=== PATIENT | female | born 1955 | race Caucasian/White ===

== ENCOUNTER → 2016-06-15 | Outpatient (CLI) | payer OTHER ==
--- NOTE | ~2016-06-15 | CT55 ---
[facility] A Service of [facility] RADIOLOGY TEXT RESULTS PATIENT: ROSA ROSE LOCATION: [facility] : 57 UNIT #: [id number] AGE: [address]: Destiney Cruz MD SEX: F ORDER DR: [id number] [facility] [address] [place], [place] [address] [id number] O MR#: [id number] Acc #: [id number] NAME: ROSA ROSE : 1955 SEX: F STUDY DATE/TIME: 06/15/2016 14:09 UNIT: [facility] ROOM: STUDY DESCRIPTION: CT Chest W Con Attending Physician: Destiney Cruz M.D., Ph.D. Referring Physician: Destiney Cruz M.D., Ph.D. Ordering Physician: Destiney Cruz M.D., Ph.D. Primary Care Physician: Primary Care Physician No MEDICAL IMAGING REPORT This report is preliminary unless electronic signature is present EXAM CT chest, 06/15/2016 HISTORY Colon cancer. Malignant neoplasm of the descending colon. Restaging. Observation for metastatic disease. TECHNIQUE CT of the chest utilizing 100 mL Isovue-370 IV contrast. Coronal and sagittal reconstructions were obtained. This CT exam was performed with one or more of the following radiation dose reduction techniques: automatic exposure control, adjustment of mA and/or kV according to patient size, and iterative reconstruction. COMPARISON Concurrent CT abdomen and pelvis dated 06/15/[address] chest, abdomen, and pelvis dated 02/06/2016. FINDINGS There are a few tiny micronodules in the lungs. These all measure less than 3 mm in size and are unchanged from prior studies. Some of these appear to be calcified and are likely benign granulomas. There is no focal consolidation. Central airways are patent. No pathologically enlarged mediastinal or hilar lymph nodes. Please refer to a separately dictated report for details on the abdomen and pelvis. There is no acute osseous abnormalities. IMPRESSION Tiny noncalcified pulmonary nodules are unchanged from July 2015. These are probably benign granulomas, however can be followed given the [facility] A Service of [facility] RADIOLOGY TEXT RESULTS PATIENT: ROSA ROSE LOCATION: [facility] : 57 UNIT #: [id number] AGE: [address]: Destiney Cruz MD SEX: F ORDER DR: patient's history. Dictated by... Riki Chambers M.D. THIS IS AN ELECTRONICALLY VERIFIED REPORT Riki Chambers M.D. at 06/16/2016 2:14 PM JUSTYNA/jyoti TD: 06/16/2016 00:02 JOB #: [id number] MEDICAL IMAGING REPORT COPY
--- NOTE | ~2016-06-15 | CT2 ---
[facility] A Service of [facility] RADIOLOGY TEXT RESULTS PATIENT: ROSA ROSE LOCATION: [facility] : 57 UNIT #: [id number] AGE: [address]: Destiney Cruz MD SEX: F ORDER DR: [id number] [facility] [address] [place], [place] [address] [id number] O MR#: [id number] Acc #: [id number] NAME: ROSA ROSE : 1955 SEX: F STUDY DATE/TIME: 06/15/2016 14:09 UNIT: [facility] ROOM: STUDY DESCRIPTION: CT Abd and Pelv W Cont Attending Physician: Destiney Cruz M.D., Ph.D. Referring Physician: Destiney Cruz M.D., Ph.D. Ordering Physician: Destiney Cruz M.D., Ph.D. Primary Care Physician: Primary Care Physician No MEDICAL IMAGING REPORT This report is preliminary unless electronic signature is present EXAM CT abdomen and pelvis, 06/15/2016. HISTORY Malignant neoplasm in the descending colon. Restaging. Observation for metastatic disease. TECHNIQUE CT of the abdomen and pelvis with p.o. and IV contrast (100 mL Isovue-370 IV contrast). Coronal and sagittal reconstructions were obtained. This CT exam was performed with one or more of the following radiation dose reduction techniques: Automatic exposure control, adjustment of mA and/or kV according to patient size, and iterative reconstruction. COMPARISON Concurrent CT chest 06/15/[address] chest, abdomen and pelvis dated 02/06/2016. FINDINGS ABDOMEN: Low attenuation throughout the hepatic parenchyma is most consistent with hepatic steatosis. The gallbladder is not distended. The pancreas, adrenal glands, and kidneys are within normal limits. 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 The bowel is not dilated. There is postsurgical change of the stomach. The gallbladder is not distended. The abdominal aorta is normal in caliber. PELVIS: No pelvic mass. The appendix is normal. PELVIS: No pelvic mass or free pelvic fluid. Bladder is unremarkable. No enlarged pelvic or inguinal lymph nodes. No acute osseous abnormalities. STS. [facility] A Service of [facility] RADIOLOGY TEXT RESULTS PATIENT: ROSA ROSE LOCATION: [facility] : 57 UNIT #: [id number] AGE: [address]: Destiney Cruz MD SEX: F ORDER DR: IMPRESSION 1. No evidence of metastatic disease in the abdomen or pelvis. Dictated by... Riki Chambers M.D. THIS IS AN ELECTRONICALLY VERIFIED REPORT Riki Chambers M.D. at 06/16/2016 2:14 PM RPNirali/mian TD: 06/16/2016 00:10 JOB #: [id number] MEDICAL IMAGING REPORT COPY
[2016-06-15 14:51] LABS: POC - CREATININE 0.67 mg/dL (0.44-1.03); POC - GFR >60.0 mL/min (>60)
== END | disposition home or self-care (01) ==
LOC: CCAT 13:20
PROVIDERS: Internal Medicine Hematology & Oncology
DX: C18.6 Malignant neoplasm of descending colon (principal); E11.9 Type 2 diabetes mellitus without complications; R91.8 Other nonspecific abnormal finding of lung field
CPT/HCPCS: 71260; 74177; 82565; Q9967

== ENCOUNTER → 2016-12-09 | Outpatient (CLI) | payer OTHER ==
--- NOTE | ~2016-12-09 | CT55 ---
[facility] A Service of [facility] RADIOLOGY TEXT RESULTS PATIENT: ROSA ROSE [facility] UNIT #: [id number] AGE: [address]: Destiney Cruz MD SEX: F ORDER DR: [id number] [facility] [address] [place], [place] [address] [id number] O MR#: [id number] Acc #: [id number] NAME: ROSA ROSE : 1955 SEX: F STUDY DATE/TIME: 12/09/2016 9:22 [facility] ROOM: STUDY DESCRIPTION: CT Chest W Con Attending Physician: Destiney Cruz M.D., Ph.D. Referring Physician: Destiney Cruz M.D., Ph.D. Ordering Physician: Destiney Cruz M.D., Ph.D. Primary Care Physician: Thomas Multani M.D. MEDICAL IMAGING REPORT This report is preliminary unless electronic signature is present EXAM CT chest with contrast HISTORY 61-year-old female diagnosed with colon cancer July 2015. Patient presents for followup and surveillance for possible metastatic disease. COMPARISON Chest CT 06/15/2016 FINDINGS Axial images performed through the chest following IV contrast. Multiplanar reconstructed images were reviewed. This CT exam was performed with one or more of the following radiation dose reduction techniques: Automatic exposure control, adjustment of mA and/or kV according to patient size, and iterative reconstruction. Several, very subtle small, less-than 3 mm nodules are seen in the periphery of the lingular segment of the left upper lobe and also within the right middle lobe. These were noted on previous studies and appear actually less conspicuous on today's examination. These most assuredly represent benign disease. No new nodules are seen. Trachea and bronchi normal. Background parenchyma unremarkable. There are a few, very small, scattered peripheral granulomas. Heart, aorta and pulmonary vessels appear normal. No adenopathy. Small amount of coronary artery calcification. Visualized upper abdomen unremarkable, except for changes of splenectomy. Thoracic spine, thoracic inlet appear normal. Indwelling venous access port noted over the left anterior chest. IMPRESSION 1. Stable, small bilateral pulmonary nodules. Given their stability, [facility] A Service of [facility] RADIOLOGY TEXT RESULTS PATIENT: ROSA ROSE [id number] 57 UNIT #: [id number] AGE: [address]: Destiney Cruz MD SEX: F ORDER DR: these most assuredly represent benign disease. Additionally noted are several, very small peripheral calcifications compatible with very small granulomas. Background parenchyma otherwise normal. 2. Postsurgical changes from apparent splenectomy. Dictated by... Isabelle Chavez M.D. THIS IS AN ELECTRONICALLY VERIFIED REPORT Isabelle Chavez M.D. at 12/11/2016 8:04 AM DENICE/mian TD: 12/10/2016 09:01 JOB #: [id number] MEDICAL IMAGING REPORT Page 1 of 1 COPY
--- NOTE | ~2016-12-09 | CT2 ---
[facility] A Service of [facility] RADIOLOGY TEXT RESULTS PATIENT: ROSA ROSE [facility] [birth year] UNIT #: [id number] AGE: [address]: Destiney Cruz MD SEX: F ORDER DR: [id number] [facility] [address] [place], [place] [address] [id number] O MR#: [id number] Acc #: [id number] NAME: ROSA ROSE : 1955 SEX: F STUDY DATE/TIME: 12/09/2016 9:22 [facility] ROOM: STUDY DESCRIPTION: CT Abd and Pelv W Cont Attending Physician: Destiney Cruz M.D., Ph.D. Referring Physician: Destiney Cruz M.D., Ph.D. Ordering Physician: Destiney Cruz M.D., Ph.D. Primary Care Physician: Thomas Multani M.D. MEDICAL IMAGING REPORT This report is preliminary unless electronic signature is present EXAM CT abdomen and pelvis with IV contrast COMPARISON June 15, 2016 and February 06, 2016. INDICATION 61-year-old female with history of colon cancer. Surveillance for metastatic neoplasm. TECHNIQUE Axial CT imaging of the abdomen and pelvis was performed after IV administration of 100 mL Isovue-370. Coronal and sagittal reformats were constructed. This exam was performed with one or more of the following radiation dose reduction techniques: Automatic exposure control, adjustment of mA and/or kV according to patient size and iterative reconstruction. FINDINGS Mild degenerative facet disease bilaterally at L4-L5 and L5-S1. No acute fractures or suspicious osseous lesions. Small posterior disc protrusions at all levels of the lumbar spine including at T11-T12. There is a tiny 4.0 mm nodule in the posterior basilar segment of the left lower lobe, not significantly changed from July 14, 2015. There is a tiny low-density lesion in the left hepatic lobe measuring up to 4 mm, likely present February 06, 2016 and definitely stable from June 15, 2016. 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 Changes of partial hysterectomy again noted. Pancreas is unremarkable. Normal caliber of the common bile duct. No evidence of bowel obstruction. Adrenal glands unremarkable. No abnormality of the kidneys. No hydronephrosis or hydroureter. Urinary bladder is unremarkable. CT appearance of the uterus is unremarkable. No adnexal masses. No evidence of acute appendicitis. No free fluid or STS. [facility] A Service of [facility] RADIOLOGY TEXT RESULTS PATIENT: ROSA ROSE LOCATION: [facility] : 57 UNIT #: [id number] AGE: [address]: Destiney Cruz MD SEX: F ORDER DR: pneumoperitoneum. No adenopathy. Abdominal aorta is normal in course and caliber. Main branches of the abdominal aorta are widely patent. No evidence of venous thrombosis. IMPRESSION 1. 3 mm nodule in the posterior basilar segment of the left lower lobe is stable from July 14, 2015. Statistically this most likely represents a benign granuloma. Given the patient's history of malignancy, continued imaging followup is recommended. 2. Tiny low-density lesion in the left hepatic lobe is too small to characterize, definitely stable from June 15, 2016 and it was likely present as well in February 2016. Statistically this most likely represents a benign cyst or hemangioma. Also, given the patient's history of malignancy, continued imaging followup is recommended. 3. Changes of partial gastric resection are grossly stable. Prior splenectomy. No other possible findings of metastatic disease within the abdomen, pelvis or imaged lower chest. Dictated by... Varinder Perez M.D. THIS IS AN ELECTRONICALLY VERIFIED REPORT Varinder Perez M.D. at 12/15/2016 2:13 PM Kyle TD: 12/10/2016 09:04 JOB #: [id number] MEDICAL IMAGING REPORT Page 1 of 1 COPY
[2016-12-09 09:25] LABS: POC - GFR >60.0 mL/min (>60)
== END | disposition home or self-care (01) ==
LOC: CCAT 08:53
PROVIDERS: Internal Medicine Hematology & Oncology
DX: Z08 Encounter for follow-up examination after completed treatment for malignant neoplasm (principal); E11.9 Type 2 diabetes mellitus without complications; R91.8 Other nonspecific abnormal finding of lung field; I73.9 Peripheral vascular disease, unspecified; Z90.49 Acquired absence of other specified parts of digestive tract; Z85.038 Personal history of other malignant neoplasm of large intestine
CPT/HCPCS: 71260; 74177; 82565; Q9967